=== PATIENT | female | born 1995 | race Caucasian/White ===

== ENCOUNTER 2016-03-07 23:23 | Inpatient (IN) | payer OTHER, MEDICAID ==
[~2016-03-07 23:23] MED LIST: LR IVPB ONE; OXYTOCIN IVPB ONE
[2016-03-07] MEDS ORDERED: Witch Hazel PAD* JAR TOPICAL PRN (23:33)
[2016-03-07] MEDS ORDERED: Acetaminophen TAB* 325 MG PO PRN (23:33)
[2016-03-07] MEDS ORDERED: Dibucaine 1% 28.35 GM TUBE PR PRN (23:33)
[2016-03-07] MEDS ORDERED: Glycerin ADULT SUPP PR PRN (23:33)
[2016-03-07] MEDS ORDERED: Oxytocin in LR* 20 UNITS/1,000 ML BAG IVPB SCH (23:45)
[2016-03-08] MEDS ORDERED: Misoprostol TAB* 200 MCG PR ONE (00:11)
[2016-03-08] MEDS ORDERED: Methylergonovine INJ* 0.2 MG/ML 1ML AMP ONE (00:34)
[2016-03-08] MEDS ORDERED: Methylergonovine INJ* 0.2 MG/ML 1ML AMP IM ONE (00:34)
[2016-03-08] MEDS: Ibuprofen TAB* 600 MG PO PRN (00:41)
[2016-03-08] MEDS ORDERED: Ibuprofen TAB* 600 MG ONE (00:41)
[2016-03-08] MEDS ORDERED: Oxytocin in LR* 20 UNITS/1,000 ML BAG IVPB ONE (00:58)
[2016-03-08 02:53] LABS: Benzodiazepine Urine Screen None Detected (None Detect)
[2016-03-08] MEDS ORDERED: Clindamycin 900 MG IVPREMIX(* 900 MG/50 ML SDV IV ONE ×2 (04:01→04:10)
[2016-03-08 04:10] LABS: Hematocrit 43 % (35-47); Hemoglobin 14.4 g/dl (12.0-16.0); Mean Corpuscular HGB Conc 33 g/dl (31-36); Mean Corpuscular Hemoglobin 31 pg (27-31); Mean Corpuscular Volume 92 fL (80-97); Mean Platelet Volume 12 um3 (7.4-10.4); Red Cell Distribution Width 13 % (10.5-15); White Blood Count 11.3 10^3/ul (3.5-10.8)
[2016-03-08] MEDS ORDERED: fentaNYL* 50 MCG/ML 2 ML VIAL (100 MCG VIAL) ONE (04:13)
[2016-03-08] MEDS ORDERED: Midazolam* 1 MG/ML 5 ML VIAL (5 MG) ONE (04:13)
[2016-03-08] MEDS ORDERED: Chloroprocaine 2%* 20 ML VIAL ONE (04:13)
[2016-03-08 04:18] LABS: Comments Flag Yes
[2016-03-08 04:19] LABS: Add Diff/Slide Review? Slide Review Added
[2016-03-08] MEDS ORDERED: Gentamicin ADULT (*) 80 MG in NS 0.9% 100 ML* 100 ML IVPB ONE (05:00)
[2016-03-08] MEDS ORDERED: Midazolam* 1 MG/ML 2 ML VIAL (2 MG) ONE (05:00)
[2016-03-08] MEDS ORDERED: fentaNYL* 50 MCG/ML 2 ML VIAL (100 MCG VIAL) IV PRN (05:22)
[2016-03-08] MEDS ORDERED: Ondansetron INJ* 2 MG/ML VIAL IV PRN (05:22)
[2016-03-08] MEDS ORDERED: Misoprostol TAB* 100 MCG ONE (08:00)
[2016-03-08] MEDS: Simethicone TAB* 80 MG TAB.CHEW PO SCH ×3 (08:17→18:56)
[2016-03-08] MEDS: Docusate CAP* 100 MG PO SCH ×4 (08:17→19:08)
[2016-03-08 08:18] LABS: Hematocrit 30 % (35-47); Hemoglobin 10.5 g/dl (12.0-16.0); Mean Corpuscular HGB Conc 35 g/dl (31-36); Mean Corpuscular Hemoglobin 31 pg (27-31); Mean Corpuscular Volume 91 fL (80-97); Mean Platelet Volume 10 um3 (7.4-10.4); Red Blood Count 3.34 10^6/ul (4.0-5.4); Red Cell Distribution Width 13 % (10.5-15); White Blood Count 9.5 10^3/ul (3.5-10.8)
[2016-03-08] MEDS: Ferrous Gluconate TAB* 324 MG TAB PO SCH ×2 (08:28→19:09)
[2016-03-08 08:32] LABS: Globulin 2.5 g/dL (2-4); Total Bilirubin 0.5 mg/dL (0.2-1.0); Total Protein 4.5 g/dL (6.4-8.9)
[2016-03-08] MEDS ORDERED: Tetan/Diph/Pertus SYR(Tdap)* 0.5 ML SYR(BOOSTRIX) use SYR IM ONE (09:00)
[2016-03-08] MEDS ORDERED: Influenza VAC *QUAD* 2016-17* 0.5 ML SYRINGE IM ONE (09:00)
[2016-03-08] MEDS ORDERED: Varicella Virus Vaccine Live* 0.5 ML VIAL SUBCUT ONE (09:00)
[2016-03-08 10:08] LABS: Direct Bilirubin 0.3 mg/dL (0.03-0.18); Indirect Bilirubin 0.2 mg/dL (0.3-1.0)
[2016-03-09] MEDS: Ibuprofen TAB* 600 MG PO PRN (06:18)
[2016-03-09] MEDS: Ferrous Gluconate TAB* 324 MG TAB PO SCH (08:22)
[2016-03-09] MEDS: Docusate CAP* 100 MG PO SCH ×2 (08:22→13:18)
--- NOTE | 2016-03-09 14:09 | PTEDU ---
Patient Name: SHOAIB JOINER RHYSSHOAIB selected video: Never Ever Shake a Baby to view on 03/09/2016 at 2:09:06 PM from [facility]_ [id number]
[2016-03-09 16:00] VITALS: BP 123/66
--- NOTE | 2016-03-10 03:48 | OP ---
DATE OF OPERATION: 03/08/16 - ROOM #116 DATE OF : 89 SURGEON: Nicolle Clement MD ANESTHESIOLOGIST: Dr. Garland. ANESTHESIA: Spinal. PRE-OP DIAGNOSIS: hemorrhage with suspected retained placental tissue. POST-OP DIAGNOSIS: hemorrhage and retained placenta and vaginal lacerations from delivery. OPERATIVE PROCEDURE: Manual extraction of retained placenta and uterine clot and repair of right labial and periurethral lacerations. ESTIMATED BLOOD LOSS: 300 cc. URINE OUTPUT: Not measured. IV FLUIDS: 2200 cc lactated ringers. MATERIALS TO LAB: Placental fragment. INDICATIONS: The patient was a 21-year-old 1, para 1 who delivered precipitously in the ambulance on the way to the [facility]. The patient was just under 34 weeks gestation and was a known IV drug abuser. On admission to the emergency department the living manager that was in the hospital attended to the patient and the placenta seemed to deliver intact at that time. Over the next few hours, the patient seemed to be doing well, but then started having some fairly persistent bleeding and passage of large clots with fundal massage. She was initially give additional Pitocin, rectal misoprostol, and IM Methergine, but the bleeding did not seem to improve. The fundal tone was firm during this time. On evaluation, an abdominal ultrasound was performed at the bedside and there appeared to be an approximately 2-cm density in the upper fundus as well as a fairly large amount of clot in the lower uterine segment. We discussed this and I recommended going to the operating room for manual removal of the placental fragment since the patient did not have any pain control in the room and it would likely be fairly challenging. She was extensively counselled and consent was signed. FINDINGS: Approximately 2 x 2 cm placental tissue fragment, which was removed from the upper fundus. The lower uterine segment had a fairly large amount of very firm organized clot, which was also removed. After removal of the clot and tissue, the bleeding was minimal. On examination, the patient had a right labial and a midline periurethral laceration, which were both repaired. COMPLICATIONS: None. DESCRIPTION OF PROCEDURE: The risks, benefits, and alternatives were described with the patient and informed consent was obtained. The patient was taken to the operating room with IV running where spinal anesthesia was induced and found to be adequate. The patient was prepped and draped in the normal sterile fashion in the high lithotomy position in [facility]. Time-out was performed. The uterus was then explored with one hand and a large amount of very organized firm clot was removed from the lower uterine segment. Once that was done, the upper uterus was palpated, which was fairly difficult as the mid uterus was contracted. I was able to grasp a piece of tissue that was palpable up in the upper fundus and once this was grasped, the entire piece was found to come down intact. On inspection, it appeared to clearly be a piece of placental tissue. The upper uterus was then palpated again and it was felt to be smooth with no additional remaining tissue. The uterus was very firm and there was minimal bleeding present at that time. Prior to the uterine exploration, it was noted that the patient had a couple of lacerations from the delivery, which had not been noted in the emergency department when the pt was not very cooperative. An approximately 4 cm right labial laceration was reapproximated using 4-0 Velosorb in a running stitch. An approximately 2 cm periurethral laceration was also repaired with 4-0 Velosorb in a running stitch. At that time the procedure was completed. The patient was returned to the supine position. The patient tolerated the procedure well. Sponge, lap, and needle counts were correct x2. [id number]/[facility] #: [id number] [facility]
== END 2016-03-09 16:15 | disposition home or self-care (01) | DRG 769 ==
LOC: MCHOB 23:23
PROVIDERS: ADMIT Obstetrics & Gynecology; ATTEND Obstetrics & Gynecology
PROC: 0KQM0ZZ Repair Perineum Muscle, Open Approach (ICD-10-PCS; 2016-03-08)
PROC: 10D17ZZ Extraction of Products of Conception, Retained, Via Natural or Artificial Opening (ICD-10-PCS; principal; 2016-03-08 04:22)
DX: O72.2 Delayed and secondary postpartum hemorrhage (principal); O70.1 Second degree perineal laceration during delivery; Z3A.33 33 weeks gestation of pregnancy
CPT/HCPCS: 36415; 76815; 80076; 80307; 85025; 86850; 86900; 86901; 88305; 90686; 90715; A9270-GY; J1580; J2210; J2250; J2400; J3010; S0191

== ENCOUNTER 2017-01-18 13:57 | Emergency (ER) | payer OTHER, MEDICAID ==
[2017-01-18] MEDS ORDERED: Ibuprofen TAB* 800 MG PO ONE (15:42)
--- NOTE | 2017-01-18 15:55 | ED ---
Bite Injury/Animal - HPI Summary HPI Summary: 21 female presents to ED [facility] with complaints of dog bites to right hand, left forearm and abrasion to left upper arm and right breast. Patient states she was walking into her apartment complex when her neighbors dog attacked her without reason. Patient is a rescue dog. Was cleared and completely immunized before moving into complex. No concern for rabies. Patient is going to report to [facility] and animal is available for testing. Admits to some bleeding and soreness of muscles at area of bites. No other complaints or injuries. Tetanus was last updated 1 year ago, per patient. Has not taken any medication. Paperwork on pet dog was available. - History of Current Complaint Chief Complaint: EDAnimalBite Stated Complaint: DOG BITE Time Seen by Provider: 01/18/17 14:15 Hx Obtained From: Patient Onset of Injury: Happened hours ago Type of Bite: Pet - dog Hx of Bite: Unprovoked Has Animal Been Immunized?: Yes Severity Initially: Moderate Severity Currently: Mild Pain Intensity: 6 Pain Scale Used: 0-10 Numeric Character: Puncture, Abrasion/Laceration Aggravating Factor(s): Nothing Alleviating Factor(s): Other - pressure Associated Signs And Symptoms: Negative: Numbness/Tingling Animal Available for Observation: Yes Animal Control Notified: Yes Body - Head: 1 - laceration .5cm 2 - puncture wound 3 - .5cm linear laceration 4 - abrasion 5 - abrasion - Allergies/Home Medications Allergies/Adverse Reactions: Allergies Allergy/AdvReac Type Severity Reaction Status Date / Time Amoxicillin Allergy Swelling Verified 03/08/16 00:52 Of Face,Lips,& Throat PMH/Surg Hx/FS Hx/Imm Hx Endocrine/Hematology History: Denies: Hx Anticoagulant Therapy, Hx Diabetes Cardiovascular History: Denies: Hx Hypertension Respiratory History: Reports: Hx Asthma - current drug user Psychiatric History: Reports: Hx Anxiety, Hx Depression Denies: Hx Eating Disorder, Hx of Violent Episodes Against Others - Immunization History Date of Tetanus Vaccine: 2015 Immunizations Up to Date: Yes Infectious Disease History: No Infectious Disease History: Denies: Traveled Outside the [place] in Last 30 Days - Family History Known Family History: Positive: Diabetes - Social History Alcohol Use: None Hx Substance Use: Yes Substance Use Type: Reports: Prescribed Substance Use Comment - Amount & Last Used: IV Opana - last used 03/07/16. Hx Tobacco Use: Yes Smoking Status (MU): Light Every Day Tobacco Smoker Review of Systems Constitutional: Negative Cardiovascular: Negative Respiratory: Negative Positive: Myalgia Positive: Other - lacerations/abrasion, dog bite Neurological: Negative All Other Systems Reviewed And Are Negative: Yes Physical Exam Triage Information Reviewed: Yes Vital Signs On Initial Exam: Initial Vitals Temp Pulse Resp BP Pulse Ox 98.6 F 76 18 112/67 100 01/18/17 14:24 01/18/17 14:24 01/18/17 14:24 01/18/17 14:24 01/18/17 14:24 Vital Signs Reviewed: Yes Appearance: Positive: Well-Appearing, Well-Nourished, Pain Distress - moderate- tearful Skin: Positive: Warm, Skin Color Reflects Adequate Perfusion, Dry, Other - .5cm linear laceration to dorsal center of right hand, minimal bleeding, epidermal superficial layer. puncture wound to right palmar center of hand, small .5cm laceration right left posterior forearm, abrasion left upper arm and right breast without significant depth/bleeding. no FB or muscular/bone involvement. slighty erythema and ecchymosis surround bite wounds. Negative: Cold, Numb, Cyanosis @ Head/Face: Positive: Normal Head/Face Inspection ENT: Positive: Hearing grossly normal Neck: Positive: Supple Respiratory/Lung Sounds: Positive: Clear to Auscultation, Breath Sounds Present. Negative: Rales, Rhonchi, Wheezes Cardiovascular: Positive: Normal, RRR, Pulses are Symmetrical in both Upper and Lower Extremities - 2+ radial bl. Negative: Murmur, Rub Musculoskeletal: Positive: Normal, Strength/ROM Intact, Pain @ - at bites of right hand and left forearm with movement Neurological: Positive: Normal, Sensory/Motor Intact - intact, Alert, Oriented to Person Place, Time, CN Intact II-III, Reflexes Intact, NV Bundle Intact Distally, Normal Gait - Tyler Coma Scale Coma Scale Total: 15 Procedures - Laceration/Wound Repair 1 Location: upper extremity - left forearm Description: Linear Length, Depth and Shape: 1cm linear lac Irrigated w/ Saline (ccs): 400 Laceration/Wound Explored: clean, no foreign body removed Closure: Skin Adhesive Diagnostics - Vital Signs Vital Signs Temp Pulse Resp BP Pulse Ox 01/18/17 14:24 98.6 F 76 18 112/67 100 - Laboratory Lab Statement: Any lab studies that have been ordered have been reviewed, and results considered in the medical decision making process. - Radiology right hand Xray Interpretation: No Acute Changes - Negative for fracture or malalignment. No conspicuous foreign body or subcutaneous emphysema evident. Unremarkable soft tissue contours. Radiology Interpretation Completed By: Radiologist Bite Injury Course/Dx - Course Course Of Treatment: xray of right hand obtained due to BULL and PE findings, negative for fracture/FB. laceartions were irrigated throughouly using some antispetic, normal saline and lidocaine. high pressure irrigattion to lacerations and punture wounds. abrasions cleaned. triple antibiotic ointment applied to all. left forearm lac closed with glue, hand lacerations/punture wound left open. will give bactrim and clindamycin due to location and depth of lacerations. allergic to amoxilicin. encouraged importance of probiotics. tetanus is UTD, 2016, no concern for rabies as animal was immunized, paperwork was avaialble. [facility] will be notified. No other concerns at this time. Wounds were bandaged. Keep clean and dry. oral anitbiotic and ointment. follow up with pcp. aware of worsening signs and symptoms to watch out for. - Diagnoses Differential Diagnosis/HQI/PQRI: Positive: Crush Injury, Fracture, Laceration, Puncture, Other - abrasion, dog bite Provider Diagnosis: Dog bite, Laceration of right hand, Puncture wound of right hand, Laceration of left forearm, Abrasions of multiple sites Discharge - Discharge Plan Condition: Stable Disposition: HOME Prescriptions: Clindamycin Cap(NF) [Clindamycin Cap 300 mg Cap(NF)] 300 mg PO TID #30 cap Ibuprofen TAB* [Motrin TAB* 600 MG] 600 mg PO Q6H PRN #30 tab PRN Reason: Pain Sulfamethox/Trimethoprim DS* [Bactrim DS 800/160 TAB*] 1 tab PO BID #20 tab Patient Education Materials: Animal Bite (ED), Laceration (ED), Skin Adhesive Care (ED) Referrals: Kendell Ozuna MD [Primary Care Provider] - Additional Instructions: Take prescribed medication as directed to prevent infection. Keep wound extremely clean and dry. Do not get glued laceration wet for 24-48 hours. Apply triple antibiotic ointment. Ibuprofen and tylenol as needed for pain and inflammation. Take with food. Ice and elevated to prevent swelling. 20 minutes on and 20 minutes off. Follow up with PCP. Any new or worsening symptoms please seek medical attention, as discussed.
--- NOTE | 2017-01-18 16:08 | RAD ---
INDICATION: Dog bite. Assess for fracture. Laceration posterior RIGHT hand near the distal fifth metacarpal. COMPARISON: No relevant prior exams available on the [facility] PACS for comparison. TECHNIQUE: AP, lateral, and oblique views RIGHT hand. REPORT AND IMPRESSION: Negative for fracture or malalignment. No conspicuous foreign body or subcutaneous emphysema evident. Unremarkable soft tissue contours.
[2017-01-18] MEDS ORDERED: Lidocaine 1%* 5 ML VIAL INJ ONE (16:50)
[2017-01-18 17:18] VITALS: BP 116/57
== END 2017-01-18 17:20 | disposition home or self-care (01) ==
LOC: ED 13:57
DX: S61.451A Open bite of right hand, initial encounter (principal); S61.431A Puncture wound without foreign body of right hand, initial encounter; S51.812A Laceration without foreign body of left forearm, initial encounter; S60.519A Abrasion of unspecified hand, initial encounter; W54.0XXA Bitten by dog, initial encounter; Y93.9 Activity, unspecified; Y92.9 Unspecified place or not applicable
CPT/HCPCS: 96374; 99282; A9270-GY

== ENCOUNTER 2020-03-27 17:56 | Inpatient (IN) ==
[2020-03-27] MEDS ORDERED: Lactated Ringers 1000 ml BAG 1,000 ML IV ONE (19:17)
[2020-03-27] MEDS ORDERED: Buffered Lidocaine 1% SYRIN 1 ml INTRADERM ONE (19:17)
[2020-03-27] MEDS ORDERED: Dinoprostone 10 MG VAG.SUPP VAGINAL ONE (19:17)
[2020-03-27 20:52] LABS: Urine Benzodiazepine Screen None Detected (None Detect); Urine Cannabinoids Screen None Detected (None Detect); Urine Opiates Screen None Detected (None Detect)
[2020-03-28] MEDS: Buprenorphine 2 mg SL TAB SL SCH (08:51)
[2020-03-28] MEDS ORDERED: Oxytocin in LR 20 UNITS/1,000 ML BAG IVPB SCH (14:00)
[2020-03-28] MEDS: Lactated Ringers 1000 ml BAG 1,000 ML IV SCH ×3 (14:25→19:09)
[2020-03-28 14:43] LABS: ABS Eosinophils 0.2 10^3/ul (0-0.6); ABS Lymphocytes 2.2 10^3/ul (1.0-4.8); ABS Monocytes 0.5 10^3/ul (0-0.8); ABS Neutrophils 5.4 10^3/ul (1.5-7.7); Eosinophil % 2.1 %; Hematocrit 41 % (35-47); Hemoglobin 14.1 g/dL (12.0-16.0); Lymphocyte % 26.4 %; Mean Corpuscular HGB Conc 34 g/dL (31-36); Mean Corpuscular Hemoglobin 32 pg (27-31); Mean Corpuscular Volume 92 fL (80-97); Mean Platelet Volume 8.7 fL (7.4-10.4); Platelet Count 192 10^3/uL (150-450); Red Blood Count 4.46 10^6 /uL (3.70-4.87); Red Cell Distribution Width 12 % (10-15); White Blood Count 8.3 10^3/uL (3.5-10.8)
[2020-03-28 15:13] LABS: Albumin 3.3 g/dL (3.2-5.2); Albumin/Globulin Ratio 1.1 (1-3); BUN/Creatinine Ratio 17.4 (8-20); Calcium 8.7 mg/dL (8.6-10.3); EGFR African American 197.2 (>60); EGFR Non-African American 162.9 (>60); Globulin 2.9 g/dL (2-4); Potassium 3.8 mmol/L (3.5-5.0); Total Bilirubin 0.6 mg/dL (0.2-1.0); Total Protein 6.2 g/dL (6.4-8.9)
[2020-03-28] MEDS ORDERED: Dibucaine 1% OINT 28.35 GM TUBE PR PRN (20:12)
[2020-03-28] MEDS ORDERED: Witch Hazel PAD JAR TOPICAL PRN (20:12)
[2020-03-28] MEDS ORDERED: Nicotine Lozenge mini 4 MG LOZNG.MINI MT PRN (20:14)
[2020-03-28] MEDS ORDERED: Lactated Ringers 1000 ml BAG 1,000 ML IV SCH (21:00)
[2020-03-28] MEDS: Buprenorphine 2 mg SL TAB SL PRN (21:03)
[2020-03-28] MEDS: Nicotine GUM 4MG FRUIT FLAVOR PO PRN (22:01)
[2020-03-29 06:07] LABS: ABS Eosinophils 0.1 10^3/ul (0-0.6); ABS Lymphocytes 2.3 10^3/ul (1.0-4.8); ABS Monocytes 0.6 10^3/ul (0-0.8); ABS Neutrophils 7.3 10^3/ul (1.5-7.7); Hematocrit 34 % (35-47); Mean Corpuscular HGB Conc 36 g/dL (31-36); Mean Corpuscular Hemoglobin 33 pg (27-31); Mean Corpuscular Volume 92 fL (80-97); Mean Platelet Volume 9.2 fL (7.4-10.4); Platelet Count 168 10^3/uL (150-450); Red Cell Distribution Width 12 % (10-15); White Blood Count 10.3 10^3/uL (3.5-10.8)
[2020-03-29] MEDS: Buprenorphine 2 mg SL TAB SL SCH (08:17)
[2020-03-29] MEDS: Nicotine GUM 4MG FRUIT FLAVOR PO PRN ×2 (08:21→21:27)
[2020-03-29] MEDS: Nicotine PATCH 7 MG/24 HR PATCH TRANSDERM SCH (17:16)
[2020-03-29] MEDS: Buprenorphine 2 mg SL TAB SL PRN (21:27)
[2020-03-30] MEDS: Buprenorphine 2 mg SL TAB SL SCH (10:14)
[2020-03-30] MEDS: Nicotine GUM 4MG FRUIT FLAVOR PO PRN ×3 (10:18→21:19)
[2020-03-30] MEDS: Nicotine PATCH 7 MG/24 HR PATCH TRANSDERM SCH (10:33)
[2020-03-30 21:16] VITALS: BP 125/83
[2020-03-30] MEDS: Buprenorphine 2 mg SL TAB SL PRN (21:19)
== END 2020-03-30 21:40 | disposition home or self-care (01) | DRG 560 ==
LOC: MCHOBOUT 17:56 → MCHOB 18:21
PROVIDERS: ADMIT Midwife; ATTEND Midwife

== ENCOUNTER 2021-03-17 14:12 | Inpatient (IN) ==
[2021-03-17] MEDS ORDERED: Buffered Lidocaine 1% SYRIN 1 ml INTRADERM ONE (16:58)
[2021-03-17] MEDS ORDERED: Lactated Ringers 1000 ml BAG 1,000 ML IV ONE (16:58)
[2021-03-17 18:46] LABS: Urine Benzodiazepine Screen None Detected (None Detect); Urine Cannabinoids Screen None Detected (None Detect); Urine Opiates Screen None Detected (None Detect)
[2021-03-17 20:45] LABS: ABS Eosinophils 0.2 10^3/ul (0-0.6); ABS Lymphocytes 1.9 10^3/ul (1.0-4.8); ABS Monocytes 0.6 10^3/ul (0-0.8); ABS Neutrophils 7.2 10^3/ul (1.5-7.7); Eosinophil % 1.5 %; Hematocrit 36 % (35-47); Hemoglobin 12.6 g/dL (12.0-16.0); Lymphocyte % 19.2 %; Mean Corpuscular HGB Conc 35 g/dL (31-36); Mean Corpuscular Hemoglobin 31 pg (27-31); Mean Corpuscular Volume 89 fL (80-97); Mean Platelet Volume 9.9 fL (7.4-10.4); Platelet Count 176 10^3/uL (150-450); Red Cell Distribution Width 13 % (10-15)
[2021-03-17] MEDS: Buprenorphine 2 mg SL TAB SL SCH (20:49)
[2021-03-17 21:28] LABS: Albumin 3.3 g/dL (3.2-5.2); Albumin/Globulin Ratio 1.2 (1-3); Calcium 8.1 mg/dL (8.6-10.3); Globulin 2.8 g/dL (2-4); Total Bilirubin 0.3 mg/dL (0.2-1.0); Total Protein 6.1 g/dL (6.4-8.9); Uric Acid 3.6 mg/dL (2.3-6.6); eGFR CKD-EPI 132.9 (>60)
[2021-03-17 22:00] LABS: Potassium 4.2 mmol/L (3.5-5.0)
[2021-03-18] MEDS ORDERED: OBEPIDURAL 0 ML EPIDURAL ONE (04:27)
[2021-03-18] MEDS ORDERED: Oxytocin in LR 20 UNITS/1,000 ML BAG IVPB SCH ×2 (05:00→09:00)
[2021-03-18] MEDS ORDERED: Ropivacaine 0.1% EPIDURAL 300 ML EPIDURAL SCH (05:00)
[2021-03-18] MEDS ORDERED: Sodium Citrate/Citric Acid LIQ 15 ML UDC PO PRN (05:39)
[2021-03-18] MEDS ORDERED: Phenylephrine 40 mcg/mL 10mL (400mcg) SYRINGE IV PUSH PRN ×2 (05:39)
[2021-03-18] MEDS ORDERED: Lactated Ringers 1000 ml BAG 1,000 ML IV SCH ×2 (06:00→09:00)
[2021-03-18 06:29] LABS: Urine Appearance Clear; Urine Bilirubin Negative (Negative); Urine Blood Negative (Negative); Urine Color Yellow; Urine Glucose 1+(50 mg/dL) (Negative); Urine Ketones Negative (Negative); Urine Nitrite Negative (Negative); Urine Protein Negative (Negative); Urine Urobilinogen Negative (Negative)
[2021-03-18] MEDS ORDERED: Witch Hazel PAD JAR TOPICAL PRN (08:15)
[2021-03-18] MEDS ORDERED: Dibucaine 1% OINT 28.35 GM TUBE PR PRN (08:15)
[2021-03-18] MEDS ORDERED: fentaNYL 100 mcg/2 ml 50 MCG/ML VIAL ONE (08:47)
[2021-03-18] MEDS ORDERED: Buprenorphine 2 mg SL TAB SL SCH (09:00)
[2021-03-18] MEDS ORDERED: Methylergonovine 0.2 mg AMPULE 1 ml AMP ONE ×2 (09:23→09:24)
[2021-03-18] MEDS: Lactated Ringers 1000 ml BAG 1,000 ML IV ONE ×2 (09:41→12:32)
[2021-03-18] MEDS: Buprenorphine 2 mg SL TAB SL SCH ×4 (09:42→21:08)
[2021-03-18] MEDS ORDERED: EPHEDrine (Pressors) 50 MG/ML VIAL IV SLOW PU ONE (09:47)
[2021-03-18] MEDS ORDERED: Methylergonovine 0.2 mg AMPULE 1 ml AMP IV SLOW PU ONE (09:48)
[2021-03-18] MEDS ORDERED: Ampicillin ADVAN 2 GM in NS 0.9% 100 ml BAG 100 ML IVPB ONE (09:48)
[2021-03-18] MEDS ORDERED: Clindamycin 900 MG/D5W BAG IVPB ONE (10:30)
[2021-03-18 14:49] LABS: ABS Lymphocytes 1.2 10^3/ul (1.0-4.8); ABS Monocytes 0.8 10^3/ul (0-0.8); ABS Neutrophils 10.6 10^3/ul (1.5-7.7); Eosinophil % 0.2 %; Hematocrit 28 % (35-47); Hemoglobin 9.9 g/dL (12.0-16.0); Lymphocyte % 9.8 %; Mean Corpuscular HGB Conc 35 g/dL (31-36); Mean Corpuscular Hemoglobin 32 pg (27-31); Mean Corpuscular Volume 90 fL (80-97); Mean Platelet Volume 9.2 fL (7.4-10.4); Platelet Count 133 10^3/uL (150-450); Red Blood Count 3.14 10^6 /uL (3.70-4.87); Red Cell Distribution Width 13 % (10-15); White Blood Count 12.6 10^3/uL (3.5-10.8)
[2021-03-19 07:01] LABS: ABS Eosinophils 0.2 10^3/ul (0-0.6); ABS Lymphocytes 2.2 10^3/ul (1.0-4.8); ABS Monocytes 0.6 10^3/ul (0-0.8); ABS Neutrophils 5.2 10^3/ul (1.5-7.7); Eosinophil % 1.8 %; Hematocrit 25 % (35-47); Hemoglobin 8.7 g/dL (12.0-16.0); Lymphocyte % 27.3 %; Mean Corpuscular HGB Conc 35 g/dL (31-36); Mean Corpuscular Hemoglobin 32 pg (27-31); Mean Corpuscular Volume 91 fL (80-97); Mean Platelet Volume 9.1 fL (7.4-10.4); Platelet Count 142 10^3/uL (150-450); Red Blood Count 2.74 10^6 /uL (3.70-4.87); Red Cell Distribution Width 13 % (10-15); White Blood Count 8.2 10^3/uL (3.5-10.8)
[2021-03-19] MEDS: Buprenorphine 2 mg SL TAB SL SCH ×4 (10:00→19:56)
[2021-03-19] MEDS ORDERED: Nicotine Lozenge mini 2 MG LOZNG.MINI MT PRN (12:39)
[2021-03-20 06:50] LABS: ABS Eosinophils 0.2 10^3/ul (0-0.6); ABS Lymphocytes 2.7 10^3/ul (1.0-4.8); ABS Monocytes 0.6 10^3/ul (0-0.8); Eosinophil % 2.6 %; Hematocrit 25 % (35-47); Hemoglobin 8.7 g/dL (12.0-16.0); Lymphocyte % 36.3 %; Mean Corpuscular HGB Conc 35 g/dL (31-36); Mean Corpuscular Hemoglobin 32 pg (27-31); Mean Corpuscular Volume 91 fL (80-97); Nucleated Red Blood Cells % 0.1; Platelet Count 168 10^3/uL (150-450); Red Blood Count 2.77 10^6 /uL (3.70-4.87); Red Cell Distribution Width 13 % (10-15); White Blood Count 7.5 10^3/uL (3.5-10.8)
[2021-03-20 08:10] VITALS: BP 116/63
[2021-03-20] MEDS: Buprenorphine 2 mg SL TAB SL SCH (08:24)
== END 2021-03-20 15:30 | disposition home or self-care (01) | DRG 541 ==
LOC: MCHOBOUT 14:12 → MCHOB 17:07
PROVIDERS: ADMIT Advanced Practice Midwife; ATTEND Advanced Practice Midwife

== ENCOUNTER 2022-08-23 11:15 | Inpatient (IN) ==
[2022-08-23] MEDS ORDERED: Oxytocin 10 UNITS/ML 1 ML VIAL IM ONE (11:33)
[2022-08-23] MEDS ORDERED: Glycerin ADULT 2.4 gm SUPP PR PRN (11:33)
[2022-08-23] MEDS ORDERED: Lactated Ringers 1000 ml BAG 1,000 ML IV SCH (12:00)
[2022-08-23 12:38] LABS: ABS Lymphocytes 1.4 10^3/uL (1.0-4.8); ABS Monocytes 0.9 10^3/uL (0.0-0.9); ABS Neutrophils 15.5 10^3/uL (1.5-7.6); ABS Nucleated RBC 0.01 10^3/ul; Eosinophil % 0.1 %; Hematocrit 39.1 % (35-45); Hemoglobin 13.4 g/dL (11.5-14.3); Lymphocyte % 7.6 %; Mean Corpuscular Hemoglobin 30.4 pg (27-33); Mean Corpuscular Hgb Conc 34.4 g/dL (31-36); Mean Corpuscular Volume 88.5 fL (80-97); Mean Platelet Volume 9.4 fL (7.5-11.2); Platelet Count 238 10^3/uL (150-450); Red Blood Count 4.42 10^6/uL (3.63-4.92); White Blood Count 17.8 10^3/uL (3.8-11.8)
[2022-08-23 13:05] LABS: Albumin 3.1 g/dL (3.2-5.2); Anion Gap 9 mmol/L (2-16); CO2 Carbon Dioxide 23 mmol/L (22-32); Calcium 8.6 mg/dL (8.6-10.3); Chloride 101 mmol/L (101-111); Potassium 4.2 mmol/L (3.5-5.0); Sodium 133 mmol/L (135-145)
[2022-08-23 13:10] LABS: Urine Benzodiazepine Screen None Detected (None Detect); Urine Opiates Screen None Detected (None Detect)
[2022-08-23 13:11] LABS: ALT 38 U/L (7-52); AST 25 U/L (13-39); Albumin/Globulin Ratio 1.1 (1-3); Alkaline Phosphatase 486 U/L (35-149); Blood Urea Nitrogen 8 mg/dL (6-24); Creatinine, Serum 0.48 mg/dL (0.51-0.95); Globulin 2.7 g/dL (2-4); Glucose 138 mg/dL (70-100); Total Protein 5.8 g/dL (6.4-8.9); eGFR CKD-EPI 131.4 (>60)
[2022-08-23 13:31] LABS: Rubella Screen IgG Equivocal (Immune)
[2022-08-23] MEDS: Witch Hazel PAD JAR TOPICAL PRN (14:37)
[2022-08-23] MEDS: Dibucaine 1% OINT 28.35 GM TUBE PR PRN (14:37)
[2022-08-23] MEDS: Buprenorphine 2 mg SL TAB SL SCH (21:33)
[2022-08-24 06:51] LABS: ABS Eosinophils 0.2 10^3/uL (0.0-0.5); ABS Lymphocytes 3.1 10^3/uL (1.0-4.8); ABS Monocytes 0.8 10^3/uL (0.0-0.9); ABS Neutrophils 7.5 10^3/uL (1.5-7.6); Eosinophil % 1.3 %; Hematocrit 31.3 % (35-45); Lymphocyte % 26.4 %; Mean Corpuscular Hemoglobin 31.1 pg (27-33); Mean Corpuscular Hgb Conc 35.1 g/dL (31-36); Mean Corpuscular Volume 88.5 fL (80-97); Platelet Count 252 10^3/uL (150-450); Red Blood Count 3.54 10^6/uL (3.63-4.92); Red Cell Distribution Width 13.1 % (12-17); White Blood Count 11.5 10^3/uL (3.8-11.8)
[2022-08-24] MEDS: Buprenorphine 2 mg SL TAB SL SCH (09:13)
[2022-08-24] MEDS: Buprenorphine 2 mg SL TAB SL PRN (14:31)
[2022-08-25] MEDS: Buprenorphine 2 mg SL TAB SL PRN (04:37)
[2022-08-25] MEDS: Dibucaine 1% OINT 28.35 GM TUBE PR PRN (08:20)
[2022-08-25] MEDS: Witch Hazel PAD JAR TOPICAL PRN (08:21)
[2022-08-25 13:06] VITALS: BP 107/62
== END 2022-08-25 15:40 | disposition home or self-care (01) | DRG 544 ==
LOC: MCHOBOUT 11:15 → MCHOB 11:20
PROVIDERS: ADMIT Obstetrics & Gynecology; ATTEND Obstetrics & Gynecology